=== PATIENT | male | born 1985 | race Two or more races ===

== ENCOUNTER 2016-12-15 16:15 | Emergency (ER) | payer SELFPAY ==
[2016-12-15 16:39] VITALS: BP 131/89
[2016-12-15] MEDS ORDERED: TRAM-29 PO (17:10)
[2016-12-15] MEDS ORDERED: METH-37 PO (17:10)
--- NOTE | 2016-12-15 17:10 | PHYS DOC ---
Past Medical History Past Medical History: No Pertinent History Past Surgical History: Other Additional Past Surgical Histo: OPEN HEART A Additional Information: nonsmoker Alcohol Use: Occasionally Drug Use: None Adult General Chief Complaint Chief Complaint: LOWER EXT PAIN HPI HPI Patient is a 31 year old male who presents with right leg pain progressively worsening over the last 5 months. He states that the pain has been the most intense over the last week. He has pain that radiates from the right upper leg and buttock down to the right foot. He has occasional numbness in the fifth toe of the right foot. He denies any injury to his back or leg. He states that the pain is worse with movement and relieved with rest. His PCP is Dr. Donovan. Review of Systems Review of Systems Constitutional: Denies fever or chills. [] Eyes: Denies change in visual acuity, redness, or eye pain. [] HENT: Denies ear pain, nasal congestion or sore throat. [] Respiratory: Denies cough or shortness of breath. [] Cardiovascular: Denies chest pain, palpitations or edema. [] GI: Denies abdominal pain, nausea, vomiting, bloody stools or diarrhea. [] : Denies dysuria, hematuria or urinary frequency. [] Musculoskeletal: Denies joint pain. Reports right-sided low back pain. Integument: Denies rash or skin lesions. [] Neurologic: Denies headache, focal weakness. Denies incontinence or saddle anesthesia. Reports numbness in the right 5th toe intermittently. Endocrine: Denies polyuria or polydipsia. [] Psych: Denies anxiety or depression. [] All systems reviewed and negative unless otherwise stated in the HPI. Allergies Allergies Allergies Coded Allergies Type Severity Reaction Last Updated Verified No Known Drug Allergies 12/15/16 No Physical Exam Physical Exam Constitutional: Well developed, well nourished, no acute distress, non-toxic appearance. [] HENT: Normocephalic, atraumatic, oropharynx moist. [] Eyes: PERRLA, EOMI, conjunctiva normal, no discharge. [] Neck: Normal range of motion, no tenderness, supple, no stridor. [] Cardiovascular: Heart rate regular rhythm, no murmur. [] Lungs & Thorax: Bilateral breath sounds clear to auscultation without wheezes, rales, or rhonchi. [] Abdomen: Bowel sounds normal, soft, no tenderness, no masses, no pulsatile masses. [] Skin: Warm, dry, no erythema, no rash. [] Back: No midline tenderness, no CVA tenderness. Right lumbosacral paraspinal muscle tenderness. Extremities: Diffuse right leg tenderness, ROM intact, no edema. 2+ DP and PT pulses bilaterally. Less than 2 second capillary refill in the toes. Light touch sensation intact proximally and distally and equal bilaterally. Neurologic: Alert and oriented X 3, normal motor function, normal sensory function, no focal deficits noted. [] Psychologic: Affect normal, judgement normal, mood normal. [] Current Patient Data Vital Signs Vital Signs Date Time Temp Pulse Resp B/P Pulse Ox O2 Delivery O2 Flow Rate FiO2 12/15/16 16:39 97.5 110 18 96 Room Air 97.5 EKG EKG [] Radiology/Procedures Radiology/Procedures [] Course & Med Decision Making Course & Med Decision Making Pertinent Labs and Imaging studies reviewed. (See chart for details) [] Dragon Disclaimer Dragon Disclaimer This electronic medical record was generated, in whole or in part, using a voice recognition dictation system. Departure Departure Impression: Primary Impression: Sciatica Disposition: HOME, SELF-CARE Condition: STABLE Referrals: MONICA DONOVAN MD Patient Instructions: Sciatica, [id number] Additional Instructions: Your pain appears to be due to irritation of the sciatic nerve. Please take the prescribed medications as directed. Do not drive or operate heavy machinery while taking these medications. To help with your pain, apply heat, practice gentle stretching and light massage , and avoid bending or lifting activities. Please follow-up with your primary care doctor if your pain continues. Return to the emergency department if you have any new or concerning symptoms. Scripts Methocarbamol (Robaxin)500 Mg [id number] Mg PO QID #20 TAB Prov:DEVON JARVIS 12/15/16 Tramadol Hcl (Ultram)50 Mg [id number] Mg PO Q6H PRN PAIN #20 TAB Prov:DEVON JARVIS 12/15/16 Problem Qualifiers Primary Impression: Sciatica Laterality: right Qualified Code: M54.31 - Sciatica, right side DEVON JARVIS Dec 15, 2016 17:10
== END 2016-12-15 17:17 | disposition home or self-care (01) ==
LOC: ER 16:15
DX: M54.31 Sciatica, right side (principal)
CPT/HCPCS: 99283

== ENCOUNTER 2021-03-31 13:27 | Emergency (ER) | payer OTHER ==
[~2021-03-31] VITALS: Ht 167.6 cm; Wt 77.5 kg
[~2021-03-31 13:27] MED LIST: METH-37 PO; TRAM-48 PO
[2021-03-31 18:30] VITALS: BP 112/86
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
[2021-03-31] MEDS ORDERED: CYCL10TA2 PO (20:01)
[2021-03-31] MEDS ORDERED: NAPR-514 PO (20:01)
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
[2021-03-31] MEDS ORDERED: DIPH,PERTUSS(ACELL),TET VAC/PF 0.5 ML SYRINGE. VAX IM ONE (20:15)
== END 2021-03-31 20:34 | disposition home or self-care (01) ==
LOC: ER 13:27
DX: S13.9XXA Sprain of joints and ligaments of unspecified parts of neck, initial encounter (principal); S40.021A Contusion of right upper arm, initial encounter; R51.9 Headache, unspecified; M54.5 Low back pain; M54.2 Cervicalgia; M79.641 Pain in right hand; V49.49XA Driver injured in collision with other motor vehicles in traffic accident, initial encounter; Y93.89 Activity, other specified; Y92.488 Other paved roadways as the place of occurrence of the external cause; Y99.8 Other external cause status
CPT/HCPCS: 70450; 72125; 72131; 73090; 73130; 90471; 90715; 99285-25